=== PATIENT | female | born 1955 | race Asian ===

== ENCOUNTER 2017-11-15 15:38 | Emergency (ER) | payer MEDICAID ==
[~2017-11-15] VITALS: Ht 165.1 cm; Wt 123.8 kg
[~2017-11-15 15:38] MED LIST: METO25TA35 PO
[2017-11-15] MEDS ORDERED: LOSA50TA6 PO (16:17)
[2017-11-15] MEDS ORDERED: ALLO100T30 PO (16:17)
[2017-11-15] MEDS ORDERED: METOPROLOL TARTRATE 25 MG TABLET ONE (16:22)
[2017-11-15] MEDS ORDERED: METOPROLOL TARTRATE 25 MG TABLET PO ONE (16:30)
[2017-11-15] MEDS ORDERED: LOSARTAN 50MG TABLET PO ONE (16:30)
[2017-11-15 17:10] VITALS: BP 170/98
== END 2017-11-15 17:11 | disposition home or self-care (01) ==
LOC: ED 17:05
DX: M10.9 Gout, unspecified (principal); I10 Essential (primary) hypertension; J06.9 Acute upper respiratory infection, unspecified; E66.9 Obesity, unspecified
CPT/HCPCS: 99283